=== PATIENT | male | born 1960 | race Caucasian/White ===

== ENCOUNTER 2017-10-10 10:00 | Emergency (ER) | payer MEDICARE, OTHER ==
[~2017-10-10] VITALS: Ht 188 cm; Wt 102.0 kg
[2017-10-10] MEDS ORDERED: TETanus/Pertussis (Acell)/Diphther VAC/PF (Tdap-Adult) 0.5ml syringe IM ONE (10:05)
[2017-10-10 11:29] VITALS: BP 141/81
== END 2017-10-10 11:31 | disposition home or self-care (01) ==
LOC: ER 10:00
DX: Z02.89 Encounter for other administrative examinations (principal); S23.3XXA Sprain of ligaments of thoracic spine, initial encounter; S20.411A Abrasion of right back wall of thorax, initial encounter; S00.81XA Abrasion of other part of head, initial encounter; F15.10 Other stimulant abuse, uncomplicated; M25.511 Pain in right shoulder; V49.88XA Car occupant (driver) (passenger) injured in other specified transport accidents, initial encounter; Y93.89 Activity, other specified; Y92.413 State road as the place of occurrence of the external cause; Y99.9 Unspecified external cause status
CPT/HCPCS: 72070; 73030; 90471; 90715; 99284